=== PATIENT | female | born 1965 | race Two or more races ===

== ENCOUNTER 2019-07-09 05:55 | Emergency (ER) | payer MEDICAID, OTHER ==
[~2019-07-09] VITALS: Ht 162.6 cm; Wt 60.3 kg
[2019-07-09 06:15] VITALS: BP 134/75
[2019-07-09 07:27] LABS: Basophils # (auto) 0 uL; Basophils % (auto) 0.4 % (0.0-2.0); Eosinophils # (auto) 0 uL; Eosinophils % (auto) 0.5 % (0.0-7.0); Hematocrit 36.8 % (36.0-46.0); Hemoglobin 12.5 g/dL (12.2-16.2); Lymphocytes # (auto) 0.4 uL; Lymphocytes % (auto) 4.8 % (10.0-50.0); Mean Corpuscular Hgb Conc. 33.9 g/dL (32.0-36.0); Mean Corpuscular Volume 91.6 fL (80.0-100.0); Monocytes # (auto) 0.8 uL; Monocytes % (auto) 10.4 % (0.0-12.0); Neutrophils # (auto) 6.3 uL; Neutrophils % (auto) 83.9 % (37.0-80.0); Platelet Count (auto) 126 10^3/uL (140-450); Red Blood Cells 4.02 10^6/uL (4.0-5.20); Red Cell Distribution Width 13.8 % (11.8-14.3); White Blood Cell 7.5 10^3/uL (4.4-10.8)
[2019-07-09 07:48] LABS: BUN/Creatinine Ratio 18.6; Calcium 9.9 mg/dL (8.5-10.1); Potassium 3.8 mmol/L (3.5-5.1)
[2019-07-09 08:13] LABS: Urine Bacteria FEW /hpf (None Seen); Urine Blood TRACE /uL (Negative); Urine Hyaline Cast FEW /lpf (0 - 2); Urine Specific Gravity 1.017 (1.001-1.035); Urine WBC 38 /hpf (0 - 5)
[2019-07-09] MEDS ORDERED: cefTRIAXone SOD 1,000 MG VL IM ONE (08:30)
== END 2019-07-09 08:42 | disposition home or self-care (01) ==
LOC: ER 05:59 → EDBD 05:59 → ER 08:42
DX: N39.0 Urinary tract infection, site not specified (principal); I10 Essential (primary) hypertension
CPT/HCPCS: 36415; 80048; 81001; 85025; 96372; 99283; J0696